=== PATIENT | male | born 1990 | race Hispanic/Latino ===

== ENCOUNTER 2018-10-18 18:09 | Emergency (ER) | payer SELFPAY ==
[~2018-10-18] VITALS: Ht 172.7 cm; Wt 70.3 kg
--- NOTE | 2018-10-18 18:59 | Diagnostic Imaging Report ---
Exam: Left thumb films History: Thumb sprain Comparison: None. Findings: There is normal bone mineralization. No acute, displaced fracture or dislocation. Joint spaces preserved. No abnormal soft tissue calcification or soft tissue defect. No soft tissue swelling. Impression: 1. No acute abnormalities. Signed by: Dr. Anders River M.D. on 10/18/2018 6:56 PM
== END 2018-10-18 19:20 | disposition home or self-care (01) ==
LOC: FSED 18:09
DX: S63.622A Sprain of interphalangeal joint of left thumb, initial encounter (principal); X50.9XXA Other and unspecified overexertion or strenuous movements or postures, initial encounter; Y99.0 Civilian activity done for income or pay
CPT/HCPCS: 99283